=== PATIENT | female | born 2000 | race Caucasian/White ===

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

== ENCOUNTER 2022-12-17 04:49 | Observation (INO) ==
[2022-12-17] MEDS ORDERED: LORazepam 2 MG/1 ML VIAL IV STA (05:31)
[2022-12-17 06:03] LABS: Hematocrit (blood only) 40.7 % (37.0-47.0); Hemoglobin 13.5 g/dl (12.0-16.0); Mean Corpuscular Hemoglobin 28.5 pg (25.0-34.0); Mean Corpuscular Hgb Conc 33.2 g/dL (32.0-36.0); Mean Platelet Volume 9.6 fL (9.4-12.4); Platelet Count 338 K/uL (130-400); RDW Standard Deviation 38.1 fL (36.4-46.3); Red Blood Count 4.73 M/uL (4.20-5.40); White Blood Count 5.41 K/ul (4.8-10.8)
[2022-12-17 06:09] LABS: Albumin Globulin Ratio 1.4 (0.9-2); Albumin Level 4.2 gm/dl (3.4-5.0); Bilirubin,Total 0.5 mg/dl (0.2-1.0); Calcium 9.7 mg/dl (8.6-10.3); Creatinine Clr Calc Pharmacy 110.9 ml/min; Est GFR (Non-African American) 100.1 ml/min; Potassium 3.6 mmol/L (3.5-5.1); Total Protein 7.2 gm/dl (6.0-8.3)
[2022-12-17] MEDS ORDERED: ONDANSETRON INJ 2 MG/ML 2 ML VIAL IV STA (06:11)
[2022-12-17] MEDS ORDERED: HYDROmorphone INJ 0.5 MG/0.5 ML SYR IV STA (06:34)
[2022-12-17] MEDS ORDERED: METOCLOPRAMIDE HCL INJ 5 MG/ML 2 ML VIAL IV STA (06:56)
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
[2022-12-17 07:07] LABS: Basophils # (auto) 0.03 K/uL (0-0.2); Basophils % (auto) 0.6 %; Eosinophils # (auto) 0.36 K/uL (0-0.50); Eosinophils % (auto) 6.7 %; Immature Granulocytes # (auto) 0.01 K/uL (0.01-0.20); Immature Granulocytes % (auto) 0.2 %; Lymphocytes # (auto) 2.96 K/uL (1.2-3.4); Lymphocytes % (auto) 54.7 %; Monocytes # (auto) 0.37 K/uL (0.11-0.59); Monocytes % (auto) 6.8 %; Neutrophils # (auto) 1.68 K/uL (1.40-6.50)
--- NOTE | 2022-12-17 08:02 | Magnetic Resonance Report ---
MRI OF THE BRAIN WITHOUT CONTRAST CLINICAL HISTORY: Evaluate for complex migraine. COMPARISON STUDY: None. TECHNIQUE: Utilizing a 1.5 Juliet magnet and dedicated coil, multiplanar, multiecho imaging of the bra in was performed without IV contrast. Due to nausea and vomiting, this exam is mildly compromised by motion artifact. FINDINGS: This exam is mildly compromised by motion artifact. There are no foci of restricted diffusi on to suggest acute infarct. No acute intracranial hemorrhage, midline shift or mass effect is presen t. Brain volume is normal. Ventricular system is normal. Basal cisterns are patent. There are no extr a-axial collections. Flow-voids for the major intracranial vessels are present. No intracranial marcelo s are identified on this unenhanced exam. No parenchymal signal abnormality is present. Calvarial sig nal is within normal limits. IMPRESSION: 1. No acute intracranial findings. 2. Exam mildly compromised by motion artifact but no abnormalities identified. ACT 112: Negative or not required by law. Electronically signed by: Pool Grant M.D. 12/17/2022 8:01 AM
[2022-12-17] MEDS ORDERED: SODIUM CHLORIDE 0.9% 1000ML 1,000 ML IV ONE (08:14)
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
[2022-12-17] MEDS ORDERED: BUTALBITAL/ACETAMIN/CAFFEINE TAB PO PRN ×2 (10:36→19:54)
[2022-12-17] MEDS ORDERED: KETOROLAC TROMETHAMINE 15 MG/ML VIAL IV PRN (10:36)
[2022-12-17] MEDS ORDERED: PROCHLORPERAZINE 10 MG in SYRINGE 8 ML IV PRN (11:19)
[2022-12-17] MEDS ORDERED: ACETAMINOPHEN 325 MG TAB PO PRN (11:19)
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
[2022-12-17] MEDS: NORTRIPTYLINE HCL 10 MG CAP PO SCH (21:14)
[2022-12-17] MEDS: ONDANSETRON INJ 2 MG/ML 2 ML VIAL IV PRN (21:26)
[2022-12-18 06:59] LABS: Hematocrit (blood only) 35.8 % (37.0-47.0); Hemoglobin 11.9 g/dl (12.0-16.0); Mean Corpuscular Hemoglobin 28.1 pg (25.0-34.0); Mean Corpuscular Hgb Conc 33.2 g/dL (32.0-36.0); Mean Corpuscular Volume 84.6 fL (80.0-100.0); Mean Platelet Volume 9.4 fL (9.4-12.4); Platelet Count 294 K/uL (130-400); RDW Coefficient of Variation 12.4 % (11.5-14.5); RDW Standard Deviation 37.7 fL (36.4-46.3); Red Blood Count 4.23 M/uL (4.20-5.40); White Blood Count 4.45 K/ul (4.8-10.8)
[2022-12-18 07:28] LABS: BUN Creatinine Ratio 13.7 (10-20); Calcium 8.8 mg/dl (8.6-10.3); Creatinine Clr Calc Pharmacy 126.6 ml/min; Est GFR (African American) 135.5 ml/min; Est GFR (Non-African American) 116.9 ml/min; Magnesium 2.1 mg/dl (1.7-2.4)
[2022-12-18] MEDS: NORTRIPTYLINE HCL 10 MG CAP PO SCH (08:02)
[2022-12-18] MEDS: ONDANSETRON INJ 2 MG/ML 2 ML VIAL IV PRN ×2 (08:05→13:57)
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
== END 2022-12-18 14:15 | disposition home or self-care (01) ==
LOC: ED 04:49 → EDINP 04:49 → 2W 17:34